=== PATIENT | male | born 1965 | race Caucasian/White ===

== ENCOUNTER → 2017-08-20 | Outpatient (CLI) | payer OTHER ==
[~2017-08-20] MED LIST: ISOVUE-370 76% 100ML VIAL (Q9967) As Ordered
== END ==
LOC: M RAD 15:07
DX: R05 Cough (principal)

== ENCOUNTER 2017-10-16 08:07 | Day surgery (SDC) | payer OTHER ==
[2017-10-16] MEDS: NS 1,000 ML IV (08:30)
[2017-10-16] MEDS ORDERED: PROPOFOL 200 MG/20 ML VIAL As Ordered ×2 (09:24→09:38)
[2017-10-16] MEDS ORDERED: LIDOCAINE 2% INJ 100 MG/5 ML SDV (FOR ANES.) As Ordered (09:38)
== END 2017-10-16 10:33 | disposition home or self-care (01) ==
LOC: M OPP 08:07
DX: Z12.11 Encounter for screening for malignant neoplasm of colon (principal); D12.2 Benign neoplasm of ascending colon; D12.0 Benign neoplasm of cecum; E78.5 Hyperlipidemia, unspecified; I47.1 Supraventricular tachycardia; Z79.899 Other long term (current) drug therapy; Z87.891 Personal history of nicotine dependence
CPT/HCPCS: 45385

== ENCOUNTER → 2018-08-19 | Outpatient (CLI) | payer OTHER ==
[~2018-08-19] MED LIST changes: +ASPI81TA26 PO; +ATEN50TA2; +FLEC50HA; -ISOVUE-370 76% 100ML VIAL (Q9967) As Ordered; +PRAV20TA2
--- NOTE | 2018-08-19 14:01 | REP ---
CT CHEST WITHOUT CONTRAST: HISTORY: Solitary pulmonary nodule. Comparison CT study August 20, 2017. This prior exam showed a 4 mm nodular opacity in the left lower lobe. 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 On axial CT images, the previously noted 4 mm left lower lobe pulmonary nodule is again seen completely unchanged. Discoid atelectasis in the right middle lobe on today's CT study. The lung diaz are otherwise clear. No other pulmonary nodule is appreciated. No pleural or pericardial effusion is seen. There is moderate diffuse fatty infiltration of the liver. No adrenal lesion is observed. The visualized upper abdominal structures are otherwise unremarkable. Vascular calcification is seen particularly along the course of the left anterior descending coronary artery. There is no evidence of adenopathy. IMPRESSION: 1. Stable 4 mm noncalcified pulmonary nodule left lower lobe unchanged since August 20, 2017. 2. Fatty infiltration of the liver. 3. Fairly extensive left coronary artery vascular calcification. Electronically Signed by Kulwinder Reynolds MD 08/19/2018 02:23 P
== END ==
LOC: M RAD 12:53
PROVIDERS: ATTEND Internal Medicine Pulmonary Disease
DX: R91.1 Solitary pulmonary nodule (principal); K76.0 Fatty (change of) liver, not elsewhere classified; I25.10 Atherosclerotic heart disease of native coronary artery without angina pectoris

== ENCOUNTER 2019-07-12 12:16 | Emergency (ER) | payer OTHER ==
[~2019-07-12] VITALS: Ht 175.3 cm; Wt 113.7 kg
[2019-07-12 12:51] LABS: BASO # 0.1 10^3/uL (0.0-0.2); BASO % 0.7 % (0.0-1.0); EOS # 0.1 10^3/uL (0.0-0.5); EOS % 1.3 % (0.0-3.0); HEMATOCRIT 47.5 % (42.0-52.0); HEMOGLOBIN 16.2 g/dl (13.5-17.5); LYMPH # 3.7 10^3/uL (1.5-5.0); LYMPH % 48.2 % (24.0-44.0); MEAN CORPUSCULAR HGB CONC 34.1 g/dl (32.0-36.5); MEAN CORPUSCULAR VOLUME 96.7 fl (80.0-96.0); MONO # 0.8 10^3/uL (0.0-0.8); MONO % 9.9 % (0.0-5.0); NEUTROPHILS % 39.6 % (36.0-66.0); PLATELET COUNT, AUTOMATED 268 10^3/uL (150-450); RED BLOOD COUNT 4.91 10^6/uL (4.30-6.10); WHITE BLOOD COUNT 7.7 10^3/uL (4.0-10.0)
--- NOTE | 2019-07-12 12:59 | REP ---
Portable chest x-ray: Single view. History: Chest pain. Findings: The lungs are symmetrically aerated and clear. Pleural angles are sharp. Heart size is normal. EKG electrodes are seen. Pulmonary vasculature is not increased. Impression: No active disease. Electronically Signed by Kulwinder Reynolds MD 07/12/2019 12:51 P
[2019-07-12] MEDS ORDERED: GI COCKTAIL 50ML BTL(HYOSCYAMINE/MAALOX/LIDOCAINE VISCOUS)(1:3:1) PO ONE (13:15)
[2019-07-12 14:00] LABS: BLOOD UREA NITROGEN 5 MG/DL (7-18); CALCIUM LEVEL 9.2 MG/DL (8.5-10.1); CARBON DIOXIDE LEVEL 29 MEQ/L (21-32); CHLORIDE LEVEL 107 MEQ/L (98-107); CK-MB VALUE MASS < 1.0 NG/ML (<3.6); CPK CREATINE PHOSPHOKINASE 137 U/L (39-308); CREATININE FOR GFR 0.95 MG/DL (0.70-1.30); GLOMERULAR FILTRATION RATE > 60.0 (>56); GLUCOSE, FASTING 88 MG/DL (70-100); LIPASE 226 U/L (73-393); MB/CK RELATIVE INDEX 0.73 (< OR =4); POTASSIUM SERUM 4.3 MEQ/L (3.5-5.1); SODIUM LEVEL 141 MEQ/L (136-145); TROPONIN I < 0.02 NG/ML (< 0.10)
[2019-07-12 16:39] LABS: CK-MB VALUE MASS < 1.0 NG/ML (<3.6); CPK CREATINE PHOSPHOKINASE 87 U/L (39-308); MB/CK RELATIVE INDEX 1.15 (< OR =4); TROPONIN I < 0.02 NG/ML (< 0.10)
[2019-07-12 17:30] VITALS: BP 125/82
--- NOTE | 2019-07-13 07:57 | ECGEPIP ---
[facility] - ED Test Date: 2019-07-12 Pat Name: VADIM AREVALO Department: Room: - Gender: Male Director Treasurer: SANTANA : 1965 Requested By: Jamal Todd Order Number: [id number] Reading MD: Jaaml Ramey Measurements Intervals Melvin Rate: 52 P: 1 IL: 165 QRS: -11 QRSD: 82 T: 7 QT: 416 QTc: 388 Interpretive Statements SINUS BRADYCARDIA POOR R WAVE PROGRESSION NSTTW ABNORMALITIES NO PRIORS FOR COMPARISON Electronically Signed on 07-13-2019 7:57:00 EST by Jamal Ramey
--- NOTE | 2019-07-13 08:04 | ECGEPIP ---
[facility] - ED Test Date: 2019-07-12 Pat Name: VADIM AREVALO Department: Room: - Gender: Male Demo Coordinator: melony : 1965 Requested By: HEIKE FREEMAN Order Number: [id number] Reading MD: Jamal Ramey Measurements Intervals [place] Rate: 45 P: 3 AR: 180 QRS: -19 QRSD: 78 T: -2 QT: 428 QTc: 372 Interpretive Statements SINUS BRADYCARDIA POOR R WAVE PROGRESSION NSTTW ABNORMALITIES SIMILAR TO PRIOR ON SAME DATE Electronically Signed on 07-13-2019 8:04:05 EST by Jamal Ramey
== END 2019-07-12 17:54 | disposition home or self-care (01) ==
LOC: M ED 12:16
DX: R07.89 Other chest pain (principal); I11.9 Hypertensive heart disease without heart failure; R00.1 Bradycardia, unspecified; K21.9 Gastro-esophageal reflux disease without esophagitis; Z87.891 Personal history of nicotine dependence; Z79.899 Other long term (current) drug therapy; Z79.82 Long term (current) use of aspirin

== ENCOUNTER → 2020-05-26 | Outpatient (CLI) | payer OTHER ==
--- NOTE | 2020-05-28 16:28 | SLEEPCENT ---
NOCTURNAL POLYSOMNOGRAPHY DATE: 05/26/2020 ORDERED BY: DALE Guerrero Nocturnal polysomnography was performed for evaluation of sleep physiology in this patient with excessive somnolence. 7 hours and 47 minutes of data were reviewed. There were 411.5 minutes of sleep identified. Sleep latency was normal at 11.5 minutes. REM latency was delayed at 137.5 minutes. Sleep architecture showed fragmentation. There were four REM cycles noted. Overall sleep efficiency was 89.7%. The electrocardiogram showed a sinus rhythm with an average heart rate of 58 beats per minute. EEG showed normal waveforms for wake and sleep. There were 74 respiratory events identified of 10 seconds in duration or greater for an apnea-hypopnea index of 10.8. The events were obstructive not exclusive to sleep stage nor body posture. Arousals from respiratory events occurred 11.4 times per hour and oxygen desaturations were seen into the 80s. IMPRESSION: Obstructive sleep apnea syndrome (G47.33), apnea-hypopnea index 10.8. RECOMMENDATION: The patient should be encouraged to return to [facility] for [facility]. In the interim, alcohol and sedative avoidance should be practiced and caution exercised during the operation of motor vehicles.
== END ==
LOC: M SLEEP 20:00
PROVIDERS: ATTEND Nurse Practitioner Family
DX: G47.33 Obstructive sleep apnea (adult) (pediatric) (principal)

== ENCOUNTER → 2020-07-07 | Outpatient (CLI) | payer OTHER ==
--- NOTE | 2020-07-10 15:09 | SLEEPCENT ---
NOCTURNAL POLYSOMNOGRAPHY DATE: 07/07/2020 ORDERED BY: DALE Guerrero Nocturnal polysomnography was performed for the titration of pressure therapy in this patient with obstructive sleep apnea syndrome with apnea-hypopnea index of 10.8. For testing a [employer] [facility] [place] full face mask of medium size was used, 4 cm of water pressure were applied to the circuit, and the lights were extinguished. 7 hours and 29 minutes of data were reviewed. There were 369 minutes of sleep identified. Sleep latency was normal at 25 minutes. REM latency was normal at 95 minutes. Sleep architecture was good with four REM cycles noted. Overall sleep efficiency was 83.1%. The patient's electrocardiogram showed a sinus rhythm with an average heart rate of 58 beats per minute; rate range 52 to 74. EEG showed normal waveforms for wake and sleep. Respiratory events were best palliated with CPAP at a pressure of +8 and remaining measures of sleep physiology were normal. IMPRESSION: Obstructive sleep apnea syndrome (G47.33). RECOMMENDATION: Nightly use of pressure therapy 8 cm of water. Ashlee Rodriguez NP
== END ==
LOC: M SLEEP 20:00
PROVIDERS: ATTEND Nurse Practitioner Family
DX: G47.33 Obstructive sleep apnea (adult) (pediatric) (principal)

== ENCOUNTER 2021-09-13 09:58 | Day surgery (SDC) | payer OTHER ==
[~2021-09-13] VITALS: Ht 182.9 cm; Wt 112.9 kg
[~2021-09-13 09:58] MED LIST changes: -ATEN50TA2; +ATEN50TA2 PO; -FLEC50HA; +FLEC50HA PO; +NS 1,000 ML IV ONE; -PRAV20TA2; +PRAV20TA2 PO
[2021-09-13] MEDS ORDERED: propofoL 200 MG/20 ML VIAL As Ordered ONE (11:26)
[2021-09-13] MEDS ORDERED: LIDOCAINE 2% 100MG/5ML SDV (FOR ANES.) As Ordered ONE (12:10)
[2021-09-13 12:20] VITALS: BP 102/56
== END 2021-09-13 12:35 | disposition home or self-care (01) ==
LOC: M OPP 09:58
PROVIDERS: ATTEND Internal Medicine Gastroenterology
DX: Z12.11 Encounter for screening for malignant neoplasm of colon (principal); Z86.010 Personal history of colon polyps; D12.6 Benign neoplasm of colon, unspecified; I47.1 Supraventricular tachycardia; I10 Essential (primary) hypertension; G47.33 Obstructive sleep apnea (adult) (pediatric); Z99.89 Dependence on other enabling machines and devices; Z79.82 Long term (current) use of aspirin; Z79.899 Other long term (current) drug therapy; Z87.891 Personal history of nicotine dependence